=== PATIENT | female | born 1945 | race Caucasian/White ===

== ENCOUNTER → 2016-03-31 | Outpatient (CLI) | payer MEDICARE ==
[~2016-03-31] MED LIST: CIPRO 500MG TA500 MG PO; COLACE 100100 MG/CAP PO; GLUCOPHAGE1000 MG PO; HUMALOG PEN100 U/ML SQ; LANTUS100 U/ML SQ; LOPID 600M600 MG/TAB PO; LOPRESSOR 550 MG/TAB PO; MIRALAX PA17 GM/Dose PO; PERCOCET 325 MG1 TA2 PO; SENNA8.6 MG PO; ZESTRIL 20MG TA20 MG PO
== END ==
LOC: SUN.DIA 03-17 14:57
DX: E11.65 Type 2 diabetes mellitus with hyperglycemia (principal); Z79.84 Long term (current) use of oral hypoglycemic drugs; Z79.4 Long term (current) use of insulin; E66.9 Obesity, unspecified; Z68.39 Body mass index [BMI] 39.0-39.9, adult; Z71.3 Dietary counseling and surveillance; E78.5 Hyperlipidemia, unspecified; I10 Essential (primary) hypertension

== ENCOUNTER → 2016-05-02 | Outpatient (REF) | LOC: ZLAB.WCH 13:12 | DX: Z01.89 Encounter for other specified special examinations (principal) ==

== ENCOUNTER → 2018-02-24 | Outpatient (REF) | LOC: ZLAB.WCH 08:44 | DX: Z01.89 Encounter for other specified special examinations (principal) ==